=== PATIENT | male | born 1950 | race Caucasian/White ===

== ENCOUNTER 2016-12-31 11:13 | Emergency (ER) | payer BC ==
[2016-12-31 11:19] VITALS: O2SAT 95
--- NOTE | 2016-12-31 12:22 | EDPHY ---
H & P Stated Complaint: can see light only l eye since friday Time Seen by Provider: 12/31/16 12:09 HPI/ROS: CHIEF COMPLAINT: Left eye vision problem HISTORY OF PRESENT ILLNESS: Patient is a 66-year-old man with history of only of hypertension who comes to the emergency department complaining of decreased vision in his left eye. He states that since he woke up on Friday morning he can only see light and dark out of his left eye. He thought that maybe it would resolve on its own but has not. It is not painful. He cannot see fingers but can see some hand motion waved in front of his face. Vision is right eye is normal. He wears glasses. No contacts. No discharge. No trauma. No weakness numbness or paralysis. REVIEW OF SYSTEMS: Constitutional: denies: chills, fever, recent illness, recent injury EENTM: See HPI Respiratory: denies: cough, shortness of breath Cardiac: denies: chest pain, irregular heart rate, lightheadedness, palpitations Gastrointestinal/Abdominal: denies: abdominal pain, diarrhea, nausea, vomiting, blood streaked stools Genitourinary: denies: dysuria, frequency, hematuria, pain Musculoskeletal: denies: joint pain, muscle pain Skin: denies: lesions, rash, jaundice, bruising Neurological: denies: headache, numbness, paresthesia, tingling, dizziness, weakness Hematologic/Lymphatic: denies: blood clots, easy bleeding, easy bruising Immunologic/allergic: denies: HIV/AIDS, transplant EXAM: GENERAL: Well-appearing, well-nourished and in no acute distress. HEAD: Atraumatic, normocephalic. EYES: No redness visible in left eye black appearing. Normally visible in right. Pupils equal round and reactive to light, extraocular movements intact, sclera anicteric, conjunctiva are normal. ENT: TMs normal, nares patent, oropharynx clear without exudates. Moist mucous membranes. NECK: Normal range of motion, supple without lymphadenopathy or JVD. LUNGS: Breath sounds clear to auscultation bilaterally and equal. No wheezes rales or rhonchi. HEART: Regular rate and rhythm without murmurs, rubs or gallops. ABDOMEN: Soft, nontender, normoactive bowel sounds. No guarding, no rebound. No masses appreciated. BACK: No CVA tenderness, no spinal tenderness, step-offs or deformities EXTREMITIES: Normal range of motion, no pitting or edema. No clubbing or cyanosis. NEUROLOGICAL: Cranial nerves II through XII grossly intact. Normal speech, normal gait. 5/5 strength, normal movement in all extremities, normal sensation PSYCH: Normal mood, normal affect. SKIN: Warm, dry, normal turgor, no visible rashes or lesions. Source: Patient Exam Limitations: No limitations - Personal History Current Tetanus/Diphtheria Vaccine: Yes - Medical/Surgical History Hx Asthma: No Hx Chronic Respiratory Disease: No Hx Diabetes: No Hx Cardiac Disease: No Hx Renal Disease: No Hx Cirrhosis: No Hx Alcoholism: No Hx HIV/AIDS: No Hx Splenectomy or Spleen Trauma: No Other PMH: htn/tonsillectomy/r ing hernia r kidney srugery - Family History Significant Family History: Hypertension - Social History Smoking Status: Never smoked Alcohol Use: Sober Drug Use: None Constitutional: Initial Vital Signs Temperature (C) 36.5 C 12/31/16 11:17 Heart Rate 75 12/31/16 11:17 Respiratory Rate 18 12/31/16 11:17 Blood Pressure 127/91 H 12/31/16 11:17 O2 Sat (%) 95 12/31/16 11:17 O2 Delivery Mode Room Air Allergies/Adverse Reactions: codeine Allergy (Verified 12/31/16 11:15) Home Medications: Medication Instructions Recorded Amlodipine Besylate 12/31/16 Lisinopril 12/31/16 Medical Decision Making ED Course/Re-evaluation: 12:25 p.m. I discussed the case with Dr. Lavon Esquivel from Ophthalmology. He requests the patient be sent to his office immediately. I discussed with the patient and he agrees. Differential Diagnosis: Partial list of the Differential diagnosis considered include but were not limited to; scleral hemorrhage, migraine, retinal detachment and although unlikely based on the history and physical exam, I also considered iritis, corneal abrasion, TIA. I discussed these differential diagnoses and the plan with the patient as well as the usual and expected course. The patient understands that the diagnosis is provisional and that in medicine we are not always correct and that further workup is often warranted. Usual and customary warnings were given. All of the patient's questions were answered. The patient was instructed to return to the emergency department should the symptoms at all worsen or return, otherwise to followup with the physician as we discussed. Departure - Departure Disposition: Home, Routine, Self-Care Clinical Impression: Vision loss of left eye Condition: Fair Instructions: Blurred Vision (ED), Retinal Hemorrhage (ED) Referrals: Lavon Esquivel MD [Medical Doctor] - As per Instructions Dustin Posadas MD [Primary Care Provider] - As per Instructions
[2016-12-31 12:44] VITALS: BP 123/76; PULSE 84; RESP 17; TEMP 98.1
== END 2016-12-31 12:43 | disposition home or self-care (01) ==
DX: H54.62 Unqualified visual loss, left eye, normal vision right eye (principal); I10 Essential (primary) hypertension

== ENCOUNTER → 2019-04-22 | Outpatient (CLI) | payer BC | LOC: FIMAGING 11:29 ==